=== PATIENT | female | born 1960 | race Caucasian/White ===

== ENCOUNTER 2017-08-31 06:15 | Inpatient (IN) | payer OTHER ==
[2017-08-31] MEDS: LACTATED RINGER'S 1,000 ML IV* ×2 (06:00→14:00)
[~2017-08-31 06:15] MED LIST: CEFAZOLIN 2 GM/50 ML (PMX) 50 ML IVPB
[2017-08-31] MEDS ORDERED: ALBUMIN HUMAN 5% 250 ML INJ (07:00)
[2017-08-31] MEDS ORDERED: CEFAZOLIN 1 GM INJ (07:00)
[2017-08-31] MEDS ORDERED: ROCURONIUM 50 MG INJ (07:00)
[2017-08-31 07:08] LABS: ANION GAP 16 (8-16); CARBON DIOXIDE 26 mmol/L (21-31); CHLORIDE 106 mmol/L (97-110); GLUCOSE 105 mg/dl (70-220)
[2017-08-31 07:09] LABS: BLOOD UREA NITROGEN 12 mg/dl (7-20); CALCIUM 9.5 mg/dl (8.4-10.2); CREATININE 0.63 mg/dl (0.44-1.00); POTASSIUM 3.7 mmol/L (3.5-5.1); SODIUM 144 mmol/L (135-144)
[2017-08-31] MEDS ORDERED: HYDROmorphONE 2 MG/ML SYG (08:52)
[2017-08-31] MEDS: CEFAZOLIN 1 GM INJ ×4 (09:12→12:10)
[2017-08-31] MEDS: GELATIN SIZE 100 SPONGE ×3 (09:13→12:48)
[2017-08-31] MEDS: THROMBIN 5000 UNIT VIAL ×3 (09:13→11:45)
[2017-08-31] MEDS: HEPARIN 1000 UNITS/ML 10 ML INJ (09:13)
[2017-08-31] MEDS ORDERED: LABETALOL HCL 20MG INJ (09:34)
[2017-08-31] MEDS ORDERED: FUROSEMIDE 20 MG INJ (10:10)
[2017-08-31] MEDS: BUPIVACAINE 0.5%/EPI (SDV) 30 ML INJ INJ (12:48)
[2017-08-31] MEDS ORDERED: PHENYLephrine (100 MCG/ML) 5ML SYG (13:03)
[2017-08-31 13:16] LABS: HEMATOCRIT 31.1 % (37.0-47.0); HEMOGLOBIN 10.7 g/dl (12.0-16.0)
[2017-08-31] MEDS ORDERED: EPHEDrine SULFATE 50 MG/5 ML SYG IV (13:30)
[2017-08-31] MEDS ORDERED: MEPERIDINE 25 MG INJ IV (13:30)
[2017-08-31] MEDS ORDERED: METOCLOPRAMIDE 10 MG INJ IV (13:30)
[2017-08-31] MEDS ORDERED: HYDROmorphONE (0.2 MG/ML) 10ML SYG IV ×3 (13:30)
[2017-08-31] MEDS ORDERED: ONDANSETRON 4 MG INJ IV ×2 (13:30→19:00)
[2017-08-31] MEDS ORDERED: ALBUTEROL 0.083% (NEB) 2.5 MG/3 ML AMP HHN (13:30)
[2017-08-31] MEDS ORDERED: FENTAnyl 50 MCG/ML VIAL IV ×3 (13:30)
[2017-08-31] MEDS ORDERED: hydrALAzine 20 MG INJ IV (13:30)
[2017-08-31] MEDS ORDERED: DIPHENHYDRAMINE 50 MG INJ IV (13:30)
[2017-08-31] MEDS ORDERED: LABETALOL HCL 20MG INJ IV (13:30)
[2017-08-31] MEDS ORDERED: KETOROLAC 30 MG INJ IV (13:30)
[2017-08-31] MEDS ORDERED: MIDAZOLAM 1 MG/ML 2 ML INJ IV (13:30)
[2017-08-31] MEDS ORDERED: ONDANSETRON 4 MG INJ (17:36)
[2017-08-31] MEDS ORDERED: DEXAMETHASONE 4 MG/ML 1 ML INJ (17:36)
[2017-08-31 17:52] LABS: HEMATOCRIT 28.9 % (37.0-47.0); HEMOGLOBIN 10.1 g/dl (12.0-16.0)
[2017-08-31 18:12] LABS: ALANINE AMINOTRANSFERASE 34 IU/L (13-69); ALBUMIN 3.1 g/dl (3.3-4.9); ALKALINE PHOSPHATASE 85 IU/L (42-121); ANION GAP 14 (8-16); ASPARTATE AMINO TRANSFERASE 41 IU/L (15-46); BILIRUBIN,INDIRECT 0.4 mg/dl (0-1.1); BILIRUBIN,TOTAL 0.4 mg/dl (0.2-1.3); CARBON DIOXIDE 24 mmol/L (21-31); CHLORIDE 106 mmol/L (97-110); GLUCOSE 164 mg/dl (70-220); TOTAL PROTEIN 6.2 g/dl (6.1-8.1)
[2017-08-31 18:15] LABS: BLOOD UREA NITROGEN 16 mg/dl (7-20); CALCIUM 8.1 mg/dl (8.4-10.2); CREATININE 1.29 mg/dl (0.44-1.00); POTASSIUM 5.3 mmol/L (3.5-5.1); SODIUM 139 mmol/L (135-144)
[2017-08-31] MEDS ORDERED: NALOXONE (0.4 MG/ML) INJ IV (19:00)
[2017-08-31] MEDS ORDERED: PROCHLORPERAZINE 10 MG TAB PO (19:00)
[2017-08-31 19:01] LABS: ADD UMIC YES; UR ASCORBIC ACID NEGATIVE (NEGATIVE); UR BILIRUBIN (Dip) NEGATIVE (NEGATIVE); UR BLOOD (Dip) NEGATIVE (NEGATIVE); UR CLARITY CLOUDY (CLEAR); UR COLOR AMBER (YELLOW); UR GLUCOSE (Dip) 1+ mg/dL (NEGATIVE); UR HYALINE CAST FEW /HPF (NONE SEEN); UR KETONES (Dip) NEGATIVE (NEGATIVE); UR LEUKOCYTE ESTERASE (Dip) NEGATIVE Leu/ul (NEGATIVE); UR MUCUS MANY /HPF (NONE SEEN); UR NITRITE (Dip) NEGATIVE (NEGATIVE); UR RBC 7 /HPF (0-5); UR SPECIFIC GRAVITY (Dip) 1.025 (1.003-1.030); UR SQUAMOUS EPITHELIAL CELL FEW /HPF (FEW); UR TOTAL PROTEIN (Dip) 2+ mg/dl (NEGATIVE); UR UROBILINOGEN (Dip) 1+ mg/dL (NEGATIVE); UR WBC 8 /HPF (0-5)
[2017-08-31] MEDS: morphine 1 MG/ML 30 ML (PCA) IV (19:09)
[2017-08-31] MEDS: SOD CHLORIDE 0.9% 1,000 ML IV (19:10)
[2017-08-31 19:11] LABS: SODIUM,URINE RANDOM 36 mmol/L (30-90)
[2017-08-31 23:29] LABS: ANION GAP 10 (8-16); BLOOD UREA NITROGEN 18 mg/dl (7-20); CALCIUM 8.4 mg/dl (8.4-10.2); CARBON DIOXIDE 26 mmol/L (21-31); CHLORIDE 109 mmol/L (97-110); CREATININE 1.14 mg/dl (0.44-1.00); GLUCOSE 188 mg/dl (70-220); POTASSIUM 4.4 mmol/L (3.5-5.1); SODIUM 141 mmol/L (135-144)
[2017-09-01] MEDS: HYDROmorphONE 0.2 MG/ML PCA IV (01:39)
[2017-09-01] MEDS: SOD CHLORIDE 0.9% 1,000 ML IV ×4 (01:48→23:20)
[2017-09-01 04:56] LABS: HEMATOCRIT 27.7 % (37.0-47.0); HEMOGLOBIN 9.6 g/dl (12.0-16.0)
[2017-09-01 05:14] LABS: MAGNESIUM 1.9 mg/dl (1.7-2.5)
[2017-09-01 05:14] LABS: PHOSPHORUS 5.1 mg/dl (2.5-4.9)
[2017-09-01 05:15] LABS: ANION GAP 13 (8-16); BLOOD UREA NITROGEN 21 mg/dl (7-20); CALCIUM 8.5 mg/dl (8.4-10.2); CARBON DIOXIDE 25 mmol/L (21-31); CHLORIDE 108 mmol/L (97-110); CREATININE 1.19 mg/dl (0.44-1.00); GLUCOSE 166 mg/dl (70-220); POTASSIUM 4.5 mmol/L (3.5-5.1); SODIUM 141 mmol/L (135-144)
[2017-09-01] MEDS: CEFAZOLIN 1 GM/50 ML (PMX) 50 ML IVPB ×4 (05:32→18:39)
[2017-09-01] MEDS ORDERED: HYDROmorphONE 0.5 MG/0.5 ML SYG IV (13:30)
[2017-09-01] MEDS: HYDROCODONE/APAP (5/325) TAB PO (14:32)
[2017-09-02] MEDS: HYDROCODONE/APAP (5/325) TAB PO ×4 (01:57→20:28)
[2017-09-02 05:23] LABS: WHITE BLOOD COUNT 15.5 10^3/ul (4.8-10.8)
[2017-09-02 05:23] LABS: ADD MAN DIFF? NO; BASOPHILS % 0.2 % (0.0-2.0); EOSINOPHILS % 0.1 % (0.0-7.0); HEMATOCRIT 20.8 % (37.0-47.0); HEMOGLOBIN 7.1 g/dl (12.0-16.0); LYMPHOCYTES # 2.1 10^3/ul (0.8-2.9); LYMPHOCYTES % 13.7 % (15.0-51.0); MEAN CORPUSCULAR HEMOGLOBIN 31.7 pg (29.0-33.0); MEAN CORPUSCULAR HGB CONC 34.1 g/dl (32.0-37.0); MEAN CORPUSCULAR VOLUME 92.9 fl (82.0-101.0); MEAN PLATELET VOLUME 11.2 fl (7.4-10.4); MONOCYTE # 1.3 10^3/ul (0.3-0.9); MONOCYTES % 8.4 % (0.0-11.0); NEUTROPHIL # 11.9 10^3/ul (1.6-7.5); NEUTROPHILS % 76.9 % (39.0-77.0); PLATELET COUNT 214 10^3/UL (140-415); RED BLOOD COUNT 2.24 10^6/ul (4.20-5.40); RED CELL DISTRIBUTION WIDTH 12.8 % (11.5-14.5)
[2017-09-02 05:47] LABS: ANION GAP 9 (8-16); BLOOD UREA NITROGEN 13 mg/dl (7-20); CALCIUM 8.1 mg/dl (8.4-10.2); CARBON DIOXIDE 26 mmol/L (21-31); CHLORIDE 106 mmol/L (97-110); CREATININE 0.69 mg/dl (0.44-1.00); GLUCOSE 117 mg/dl (70-220); SODIUM 137 mmol/L (135-144)
[2017-09-02] MEDS: AMLODIPINE 10 MG TAB PO (08:26)
[2017-09-02] MEDS: DOCUSATE SODIUM 100 MG CAP PO ×2 (12:20→20:28)
[2017-09-03] MEDS: HYDROCODONE/APAP (5/325) TAB PO ×4 (04:05→21:21)
[2017-09-03 05:45] LABS: ADD MAN DIFF? NO
[2017-09-03 06:08] LABS: WHITE BLOOD COUNT 14.3 10^3/ul (4.8-10.8)
[2017-09-03 06:08] LABS: ABNORMAL IP MESSAGE 1; BASOPHILS % 0.3 % (0.0-2.0); EOSINOPHILS % 0.2 % (0.0-7.0); HEMATOCRIT 19.9 % (37.0-47.0); LYMPHOCYTES % 14.2 % (15.0-51.0); MEAN CORPUSCULAR HEMOGLOBIN 31.6 pg (29.0-33.0); MEAN CORPUSCULAR HGB CONC 34.2 g/dl (32.0-37.0); MEAN CORPUSCULAR VOLUME 92.6 fl (82.0-101.0); MEAN PLATELET VOLUME 11.5 fl (7.4-10.4); MONOCYTE # 1.2 10^3/ul (0.3-0.9); MONOCYTES % 8.5 % (0.0-11.0); NEUTROPHIL # 10.8 10^3/ul (1.6-7.5); NEUTROPHILS % 75.6 % (39.0-77.0); NUCLEATED RED BLOOD CELLS% 0.1 /100WBC (0.0-0.0); PLATELET COUNT 239 10^3/UL (140-415); RED BLOOD COUNT 2.15 10^6/ul (4.20-5.40); RED CELL DISTRIBUTION WIDTH 12.7 % (11.5-14.5)
[2017-09-03 06:33] LABS: POSITIVE DIFF @See below
[2017-09-03 06:35] LABS: HEMOGLOBIN 6.8 g/dl (12.0-16.0)
[2017-09-03 06:37] LABS: ANION GAP 9 (8-16); BLOOD UREA NITROGEN 7 mg/dl (7-20); CALCIUM 8.4 mg/dl (8.4-10.2); CARBON DIOXIDE 28 mmol/L (21-31); CHLORIDE 103 mmol/L (97-110); CREATININE 0.55 mg/dl (0.44-1.00); GLUCOSE 111 mg/dl (70-220); POTASSIUM 3.3 mmol/L (3.5-5.1); SODIUM 137 mmol/L (135-144)
[2017-09-03] MEDS: DOCUSATE SODIUM 100 MG CAP PO ×2 (09:06→20:59)
[2017-09-03] MEDS: POTASSIUM CHLORIDE (SR) 10 MEQ TAB PO ×2 (09:08→20:58)
[2017-09-03] MEDS: AMLODIPINE 10 MG TAB PO (09:08)
[2017-09-03 10:02] LABS: ANISOCYTOSIS 1+ (0-0); BAND NEUTROPHILS #M 0.2 10^3/ul (0.0-0.6); BAND NEUTROPHILS % (M) 2 % (0-4); EOSINOPHILS % (M) 1 % (0-7); GIANT THROMBO% (M) 1 % (0-0); LYMPHOCYTES #M 1.2 10^3/ul (0.8-2.9); LYMPHOCYTES % (M) 9 % (15-51); MICROCYTOSIS 1+ (0-0); MONOCYTES % (M) 7 % (0-11); PLATELET ESTIMATE NORMAL; POLYCHROMASIA 1+ (0-0); RBC MORPHOLOGY COMMENT @See below; SEG NEUT #M 11.6 10^3/ul (1.6-7.5); SEGMENTED NEUTROPHILS (M) % 81 % (39-77); WBC MORPHOLOGY COMMENT @See below
[2017-09-03] MEDS: ACETAMINOPHEN 325 MG TAB PO (11:22)
[2017-09-03] MEDS ORDERED: DIPHENHYDRAMINE 50 MG INJ IV (12:30)
[2017-09-03 13:49] LABS: ADD UMIC YES; UR ASCORBIC ACID NEGATIVE (NEGATIVE); UR BILIRUBIN (Dip) NEGATIVE (NEGATIVE); UR BLOOD (Dip) 2+ mg/dL (NEGATIVE); UR CLARITY SLIGHTLY CLOUDY (CLEAR); UR COLOR YELLOW (YELLOW); UR GLUCOSE (Dip) NEGATIVE (NEGATIVE); UR KETONES (Dip) 1+ mg/dL (NEGATIVE); UR LEUKOCYTE ESTERASE (Dip) NEGATIVE Leu/ul (NEGATIVE); UR MUCUS FEW /HPF (NONE SEEN); UR NITRITE (Dip) NEGATIVE (NEGATIVE); UR RBC 5 /HPF (0-5); UR SPECIFIC GRAVITY (Dip) 1.012 (1.003-1.030); UR SQUAMOUS EPITHELIAL CELL FEW /HPF (FEW); UR TOTAL PROTEIN (Dip) NEGATIVE (NEGATIVE); UR UROBILINOGEN (Dip) NEGATIVE (NEGATIVE); UR WBC 3 /HPF (0-5)
[2017-09-03 14:53] LABS: IMMEDIATE SPIN CROSSMATCH 1 2
[2017-09-04 05:47] LABS: ADD MAN DIFF? NO
[2017-09-04 05:56] LABS: WHITE BLOOD COUNT 11.6 10^3/ul (4.8-10.8)
[2017-09-04 05:56] LABS: BASOPHIL # 0.1 10^3/ul (0.0-0.1); BASOPHILS % 0.5 % (0.0-2.0); EOSINOPHILS # 0.2 10^3/ul (0.0-0.5); EOSINOPHILS % 1.7 % (0.0-7.0); HEMATOCRIT 25.1 % (37.0-47.0); HEMOGLOBIN 8.4 g/dl (12.0-16.0); LYMPHOCYTES % 17.5 % (15.0-51.0); MEAN CORPUSCULAR HGB CONC 33.5 g/dl (32.0-37.0); MEAN CORPUSCULAR VOLUME 89.6 fl (82.0-101.0); MONOCYTES % 8.7 % (0.0-11.0); NEUTROPHIL # 8.1 10^3/ul (1.6-7.5); NEUTROPHILS % 69.8 % (39.0-77.0); NUCLEATED RED BLOOD CELLS% 0.3 /100WBC (0.0-0.0); PLATELET COUNT 299 10^3/UL (140-415); RED CELL DISTRIBUTION WIDTH 14.7 % (11.5-14.5)
[2017-09-04 06:28] LABS: ANION GAP 8 (8-16); BLOOD UREA NITROGEN 6 mg/dl (7-20); CALCIUM 8.7 mg/dl (8.4-10.2); CARBON DIOXIDE 33 mmol/L (21-31); CHLORIDE 105 mmol/L (97-110); CREATININE 0.56 mg/dl (0.44-1.00); GLUCOSE 96 mg/dl (70-220); MAGNESIUM 2.1 mg/dl (1.7-2.5); PHOSPHORUS 2.9 mg/dl (2.5-4.9); POTASSIUM 3.8 mmol/L (3.5-5.1); SODIUM 142 mmol/L (135-144)
[2017-09-04] MEDS: HYDROCODONE/APAP (5/325) TAB PO ×4 (07:29→22:50)
[2017-09-04] MEDS: AMLODIPINE 10 MG TAB PO (09:00)
[2017-09-04] MEDS: POTASSIUM CHLORIDE (SR) 10 MEQ TAB PO ×2 (09:31→20:59)
[2017-09-04] MEDS: DOCUSATE SODIUM 100 MG CAP PO ×2 (09:31→20:59)
[2017-09-04] MEDS: BISACODYL 10 MG SUPP PR (14:37)
[2017-09-04 20:45] LABS: OCCULT BLOOD STOOL NEGATIVE (NEGATIVE)
[2017-09-05] MEDS: HYDROCODONE/APAP (5/325) TAB PO ×2 (08:42→14:30)
[2017-09-05] MEDS: DOCUSATE SODIUM 100 MG CAP PO (08:43)
[2017-09-05] MEDS: POTASSIUM CHLORIDE (SR) 10 MEQ TAB PO (08:43)
[2017-09-05] MEDS: AMLODIPINE 10 MG TAB PO (08:48)
[2017-09-05 10:59] LABS: ADD MAN DIFF? NO
[2017-09-05 11:13] LABS: BASOPHIL # 0.1 10^3/ul (0.0-0.1); BASOPHILS % 0.5 % (0.0-2.0); EOSINOPHILS # 0.2 10^3/ul (0.0-0.5); EOSINOPHILS % 2.3 % (0.0-7.0); HEMATOCRIT 28.4 % (37.0-47.0); HEMOGLOBIN 9.4 g/dl (12.0-16.0); LYMPHOCYTES # 1.9 10^3/ul (0.8-2.9); LYMPHOCYTES % 19.4 % (15.0-51.0); MEAN CORPUSCULAR HEMOGLOBIN 29.7 pg (29.0-33.0); MEAN CORPUSCULAR HGB CONC 33.1 g/dl (32.0-37.0); MEAN CORPUSCULAR VOLUME 89.9 fl (82.0-101.0); MEAN PLATELET VOLUME 10.4 fl (7.4-10.4); MONOCYTE # 0.7 10^3/ul (0.3-0.9); MONOCYTES % 7.2 % (0.0-11.0); NEUTROPHIL # 6.6 10^3/ul (1.6-7.5); NEUTROPHILS % 69.1 % (39.0-77.0); NUCLEATED RED BLOOD CELLS% 0.3 /100WBC (0.0-0.0); PLATELET COUNT 404 10^3/UL (140-415); RED BLOOD COUNT 3.16 10^6/ul (4.20-5.40); RED CELL DISTRIBUTION WIDTH 14.5 % (11.5-14.5)
[2017-09-05 11:13] LABS: WHITE BLOOD COUNT 9.6 10^3/ul (4.8-10.8)
== END 2017-09-05 15:35 | disposition home health service (06) | DRG 453 ==
LOC: REC 06:15 → MS1 09-02 01:47 → ICU 20:17 → MS1 09-02 03:16
PROC: 0SG10A0 Fusion of 2 or more Lumbar Vertebral Joints with Interbody Fusion Device, Anterior Approach, Anterior Column, Open Approach (ICD-10-PCS; principal; 2017-08-31 08:00)
PROC: 0SG10K1 Fusion of 2 or more Lumbar Vertebral Joints with Nonautologous Tissue Substitute, Posterior Approach, Posterior Column, Open Approach (ICD-10-PCS; 2017-08-31 08:00)
PROC: 0SG30A0 Fusion of Lumbosacral Joint with Interbody Fusion Device, Anterior Approach, Anterior Column, Open Approach (ICD-10-PCS; 2017-08-31 08:00)
PROC: 0SG3071 Fusion of Lumbosacral Joint with Autologous Tissue Substitute, Posterior Approach, Posterior Column, Open Approach (ICD-10-PCS; 2017-08-31 08:00)
PROC: 0ST20ZZ Resection of Lumbar Vertebral Disc, Open Approach (ICD-10-PCS; 2017-08-31 08:00)
PROC: 0ST40ZZ Resection of Lumbosacral Disc, Open Approach (ICD-10-PCS; 2017-08-31 08:00)
PROC: 3E0U0GB Introduction of Recombinant Bone Morphogenetic Protein into Joints, Open Approach (ICD-10-PCS; 2017-08-31 08:00)
PROC: 30233N1 Transfusion of Nonautologous Red Blood Cells into Peripheral Vein, Percutaneous Approach (ICD-10-PCS; 2017-08-31 08:16)
DX: M48.062 Spinal stenosis, lumbar region with neurogenic claudication (principal); N17.0 Acute kidney failure with tubular necrosis; Z68.41 Body mass index [BMI] 40.0-44.9, adult; D62 Acute posthemorrhagic anemia; E66.01 Morbid (severe) obesity due to excess calories; Z71.3 Dietary counseling and surveillance; M51.16 Intervertebral disc disorders with radiculopathy, lumbar region; M43.16 Spondylolisthesis, lumbar region; M51.17 Intervertebral disc disorders with radiculopathy, lumbosacral region; M48.07 Spinal stenosis, lumbosacral region; I10 Essential (primary) hypertension; E87.6 Hypokalemia
CPT/HCPCS: 36430; 71045; 72110; 80048; 80053; 81001; 82270; 83735; 84100; 84300; 85014; 85018; 85025; 86850; 86900; 86901; 86920; 87081; 87086; 88304; 97110; 97116; 97163; 97530